=== PATIENT | female | born 1995 | race Caucasian/White ===

== ENCOUNTER 2024-11-13 12:29 | Emergency (ER) | payer SELFPAY ==
[2024-11-13 12:34] VITALS: BP 136/85; BMI 16.0
--- NOTE | 2024-11-13 12:44 | EDRN ---
the pt is refusing to be placed on the salvage mend worker, BP cuff, and Sp02 monitor, the pt did allow this RN to obtain vital signs then wanted equipment to be removed, the pt wants to call her family to bring her home, the pt stated that her phone is
and a cupola charger insulation was provided to the pt
--- NOTE | 2024-11-13 13:09 | EDRN ---
the pt is calling for a ride home
--- NOTE | 2024-11-13 13:12 | EDRN ---
the pt got herself dressed and is sitting on the floor attempting to get a ride home
--- NOTE | 2024-11-13 13:17 | ED.GENMED ---
History of Present Illness
General
Chief Complaint: Alcohol Problem
Source: patient and ambulance crew
Exam Limitations: none
Time Seen by Provider: 11/13/24 12:39
Nursing documentation reviewed up to this point in time: agreed with
History of Present Illness
History of Present Illness:
29-year-old female with no reported medical history presents via EMS to the emergency room apparently intoxicated. According to EMS report staff at local [place] [address] called 911 because patient appeared intoxicated and was refusing to leave. Apparently
police were called to the scene and EMS was called by police. Per EMS report on their arrival patient appeared intoxicated with multiple empty bottles of liquor nearby. She was transported to the emergency room. Here in the emergency room when I
asked the patient why she is here she says 'you tell me, I do not want to be here.' She says 'I just want to go home, I am calling a ride.' When I asked her if she has been drinking she refused to answer. When asked her if she needs any help or
is having any problems she says 'no.' She does not wish to have any testing done.
Review of Systems
Review of Systems
Unable to obtain full review of systems at this time due to: other (Patient refusing to answer)
All Other Systems: Not applicable
Phy Exam
Physical Exam
Physical Exam:
General: Awake, alert, tearful and labile
Head: Normocephalic, atraumatic
Eyes: Conjunctiva normal, pupils equal round and reactive to light bilaterally
Throat: Airway intact, handling secretions
Neck: Trachea midline
Lungs: Breathing comfortably no distress
Heart: Regular rate
Neuro: Speech somewhat slurred but cranial nerves intact, moving all extremities with no gross motor or sensory deficits
Skin: No signs of trauma
Extremities: Atraumatic, warm and well-perfused, moving all extremities without any apparent pain
Scores
Heart Failure Risk
Heart Failure Risk Score: Not Applicable
Heart Score for Chest Pain Patients
STEMI patient?: Not applicable
Withdrawal Assessment of Alcohol
Withdrawal Assessment Completed?: Not applicable
Course
Vital Signs
Initial and Last Documented VS:
Initial Vital Signs
Temp Pulse Resp BP Pulse Ox
36.9 C 82 20 136/85 99
11/13/24 12:34 11/13/24 12:34 11/13/24 12:34 11/13/24 12:34 11/13/24 12:34
Last Documented Vital Signs
Temp Pulse Resp BP Pulse Ox
36.9 C 82 20 136/85 99
11/13/24 12:34 11/13/24 12:34 11/13/24 12:34 11/13/24 12:34 11/13/24 12:34
MDM/Problems Addressed
Differential Diagnosis Includes:
Alcohol intoxication, drug intoxication
MDM/Problems Addressed:
29-year-old female presents to the emergency room appears to be intoxicated; was found in a motel with multiple empty liquor bottles, agitated and refusing to leave and so staff called police who called EMS to bring her to the hospital. She does
not want any testing done she wants to leave and is calling a ride home. Fortunately she did allow us to do vital signs after some discussion and vitals are within normal limits. Will monitor clinically here; when responsible democrat arrives we will
discuss regarding how we can further help.
Patient's mother came to the emergency room to pick her up. She feels comfortable taking patient home and watching over her. Will discharge into the care of her mother.
*Pulse Oximetry
Patient hypoxic: no
*Critical Care Note
Total Time (30-74mins, 75-104mins- exclusive of procedures): Not Applicable
Data Reviewed
Source: patient and ambulance crew
ED Attending Note
-
Portions of this chart may have been created with voice recognition software.� Occasional wrong word or��sound alike� substitutions may have occurred due to the inherent limitations of voice recognition software.
Discharge Plan
Departure
Patient Disposition: Home (Routine Discharge)
Date of Disposition: 11/13/24
Time of Disposition: 16:18
Patient with high blood pressure during this ER visit?: No
Discharge Problem:
Acute alcohol intoxication
Instructions: Alcohol Use Disorder (DC)
Referrals:
UNKNOWN,NO INTERVIEW [Family Provider] -
Interventions
Interventions:
*Risk Screen - Suicide Last Done: 11/13/24 12:34
*General Assessment Last Done: 11/13/24 12:34
*Neglect/Abuse Screening Last Done: 11/13/24 12:34
ED- Fall Risk Assessment Last Done: 11/13/24 12:34
*ED COVID-19 Vaccine History Last Done: 11/13/24 12:34
ED- Neurological Assessment Last Done: 11/13/24 12:34
ED-Psychological Assessment Last Done: 11/13/24 12:34
Discharge Date and Time
Print Language: KYRGYZ
--- NOTE | 2024-11-13 14:15 | EDRN ---
the pt is currently still attempting to get a hold of her mother to pick her up, per Dr. Kolb the pt is a safety hold until someone picks the pt up to take her home
--- NOTE | 2024-11-13 14:44 | EDRN ---
the pt is still currently refusing for vital signs to be obtained, the pt is refusing care, the pt is refusing lab work, per Dr. Kolb the pt can go home however the pt needs to have a friend or family pick her up and take her home per Dr. Kolb,
the pt is currently still waiting for a ride home
--- NOTE | 2024-11-13 14:59 | EDRN ---
the pt called her mother and her mother is coming to pick the pt up and take the pt home
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
== END 2024-11-13 16:52 | disposition home or self-care (01) ==
LOC: EMR 12:29
PROVIDERS: EMERGENCY PHYSICIAN Emergency Medicine
DX: F10.129 Alcohol abuse with intoxication, unspecified (principal)
CPT/HCPCS: 99282